=== PATIENT | female | born 1945 | race Caucasian/White ===

== ENCOUNTER → 2018-01-27 | Outpatient (CLI) | payer MEDICARE, OTHER | END | disposition home or self-care (01) | LOC: MAMMO 12:58 | DX: Z12.31 Encounter for screening mammogram for malignant neoplasm of breast (principal) | CPT/HCPCS: 77063; 77067 ==

== ENCOUNTER → 2018-06-13 | Outpatient (CLI) | payer MEDICARE, OTHER ==
--- NOTE | 2018-06-13 16:14 | KCIC ---
Bone densitometry 06/13/2018 12:30 PM Indication: Osteoporosis, postmenopausal Comparison Study: Bone densitometry May 26, 2016. Discussion: Bone Densitometry was performed with dual photon absorption of the lumbar spine and proximal left femur. Lumbar Spine: Bone average density is 0.844g/cm2 for L1-L4. T-Score is -1.8 (prior T score -2.5) Left proximal femur: Bone average density is 0.836g/cm2. T-Score is -0.9 (prior T score -0.9). IMPRESSION: Improving bone mineral density of the lumbar spine now within the osteopenic range. Bone mineral density of the left femur is grossly similar, within the low normal range. Note: Definitions established by the World Health Organization: Normal: T-score is -1.0 or above. Osteopenia: T-score is between -1.0 and -2.5. Osteoporosis: T-score is -2.5 or below. Electronically signed by: Oli Jack MD (06/13/2018 4:11 PM) [id number]
== END | disposition home or self-care (01) ==
LOC: KCIC DEXA 12:21
PROVIDERS: ATTEND Family Medicine
DX: M81.0 Age-related osteoporosis without current pathological fracture (principal); M85.89 Other specified disorders of bone density and structure, multiple sites; Z78.0 Asymptomatic menopausal state
CPT/HCPCS: 77080

== ENCOUNTER → 2019-12-19 | Outpatient (CLI) | payer MEDICARE, OTHER ==
--- NOTE | 2019-12-19 15:22 | KCIC ---
Bone mineral density exam History: Postmenopausal, osteoporosis screening Comparison: 06/13/2018 Findings: Bone mineral density examination utilizing DEXA was performed. Left hip bone mineral density of 0.818 g/cm2 corresponds with a T score -1.0, Z score 0.8. There has been -2.1 percent decrease. The bone mineral density of the lumbar spine was 0.808 g/cm2 which corresponds with a T-score of -2.2, Z score 0.2. There has been -4.3% decrease. By World Congress on Osteoporosis criteria, a T score of 0 to-1 SD is considered to be within normal limits. A T score of -1 to -2.5 SD is considered osteopenia. A T score less than -2.5 SD is considered osteoporosis Impression: 1. There is osteopenia of the lumbar spine. Bone mineral density of the left hip is borderline between normal and osteopenia. Electronically signed by: Deshaun Fields MD (12/19/2019 3:19 PM) [id number]
== END ==
LOC: KCIC DEXA 13:01
PROVIDERS: ATTEND Family Medicine
DX: Z13.820 Encounter for screening for osteoporosis (principal); M85.88 Other specified disorders of bone density and structure, other site
CPT/HCPCS: 77080

== ENCOUNTER → 2021-02-12 | Outpatient (CLI) | payer MEDICARE, OTHER ==
--- NOTE | 2021-02-12 15:39 | KCIC ---
INDICATION: Screening for osteopenia/osteoporosis. Reason: OSTEOPENIA OF LUMBAR / Spl. Instructions: / History: Postmenopausal follow-up COMPARISON: 12/19/2019 TECHNIQUE: Bone densitometry was performed through the lumbar spine and proximal femur. IMPRESSION: Lumbar Spine: BMD: 0.79 T-Score: -2.4 Range: On the border between osteopenia and osteoporosis. Decreased by 3 percent from prior. Proximal Femur: BMD: 0.8 T-Score: -1.1 Range: Osteopenic. Decreased by 2 percent from prior. World Health Organization Criteria for Bone Density: T-Score: > -1.0: Normal Range < -1.0 to -2.5: Osteopenic Range < -2.5: Osteoporotic Range Electronically signed by: Jim Michaels MD (02/12/2021 3:36 PM) [id number]
== END ==
LOC: KCIC DEXA 14:43
PROVIDERS: ATTEND Family Medicine
DX: M85.88 Other specified disorders of bone density and structure, other site (principal); Z78.0 Asymptomatic menopausal state; Z13.820 Encounter for screening for osteoporosis
CPT/HCPCS: 77080